=== PATIENT | female | born 1980 | race Caucasian/White ===

== ENCOUNTER 2020-09-04 00:16 | Emergency (ER) | payer BC ==
[2020-09-04] MEDS ORDERED: Acetaminophen/HYDROcodone 325-5 MG Tab PO ONE (00:17)
[2020-09-04] MEDS ORDERED: Sodium Chloride 0.9% 10 ML Syringe FLUSH PRN (00:35)
[2020-09-04] MEDS ORDERED: Ketorolac 30 MG/ML SDV IVPUSH ONE (01:13)
--- NOTE | 2020-09-04 01:16 | EDM.PDOC ---
ED HPI GENERAL MEDICAL PROBLEM - General Chief Complaint: Abdominal Pain Stated Complaint: STOMACH AND BACK PAIN Time Seen by Provider: 09/04/20 01:13 Source of Information: Reports: Patient History Limitations: Reports: No Limitations - History of Present Illness INITIAL COMMENTS - FREE TEXT/NARRATIVE: Presents with intermittent low abdominal pain that radiates to left lower back x 2 days. Denies N/V. Endorses diarrhea. No vaginal discharge. Past surgeries include and cholecystectomy. 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 ED EXAM, GI/ABD - Physical Exam Exam: See Below Exam Limited By: No Limitations General Appearance: Alert, WD/WN, No Apparent Distress Throat/Mouth: No Airway Compromise Head: Atraumatic, Normocephalic Neck: Full Range of Motion Respiratory/Chest: No Respiratory Distress, Lungs Clear, Normal Breath Sounds Cardiovascular: Regular Rate, Rhythm, No Murmur GI/Abdominal Exam: Normal Bowel Sounds, Soft, No Distention, Tender (suprapubic and LUQ). No: Guarding Back Exam: No: CVA Tenderness (R), CVA Tenderness (L) Extremities: Normal Range of Motion Neurological: Alert, Normal Cognition Psychiatric: Normal Affect, Normal Mood Skin Exam: Warm, Dry, Intact Course - Vital Signs Last Recorded V/S: Last Vital Signs Temp 36.6 C 09/04/20 00:24 Pulse 69 01/24/21 00:24 Resp 18 09/04/20 00:24 BP 142/82 H 09/04/20 00:24 Pulse Ox 100 09/04/20 00:24 - Orders/Labs/Meds Orders: Active Orders 24 hr Category Date Time Status Abdomen Pelvis w Cont [CT] Stat Exams 09/04/20 01:12 Taken CHLAMYDIA/GC AMPLIFICATION Stat Lab 09/04/20 00:25 Received Sodium Chloride 0.9% [Saline Flush] Med 09/04/20 00:35 Active 10 ml FLUSH ASDIRECTED PRN Saline Lock Insert [OM.PC] Routine Oth 09/04/20 00:35 Ordered Medication Orders Sodium Chloride (Saline Flush) 10 ml FLUSH ASDIRECTED PRN PRN Reason: Keep Vein Open Labs: Laboratory Tests 09/04/20 09/04/20 09/04/20 Range/Units 00:25 00:25 00:43 WBC 9.7 (3.0-10.3) x10-3/uL RBC 4.44 (3.60-5.20) x10(6)uL Hgb 13.6 (11.4-15.5) g/dL Hct 40.0 (34.2-48.2) % MCV 90.1 (76.7-100.5) fL MCH 30.7 (23.9-33.9) pg MCHC 34.1 (31.9-34.8) g/dL RDW 12.8 (12.3-16.5) % Plt Count 396 (151-488) x10(3)uL MPV 8.1 (7.1-12.4) fL Neut % (Auto) 60.6 (30.8-76.2) % Lymph % (Auto) 27.3 (18.4-52.1) % [place] % (Auto) 9.4 (4.4-15.7) % Eos % (Auto) 1.8 (0.6-8.1) % Baso % (Auto) 0.9 (0.2-1.5) % Neut # (Auto) 5.9 (1.5-6.3) x10-3/uL Lymph # (Auto) 2.6 (1.0-4.4) x10-3/uL [place] # (Auto) 0.9 (0.3-1.0) x10-3/uL Eos # (Auto) 0.2 (0.0-0.8) x10-3/uL Baso # (Auto) 0.1 (0.0-0.1) x10-3/uL Sodium (135-145) mmol/L Potassium (3.5-5.3) mmol/L Chloride (100-110) mmol/L Carbon Dioxide (21-32) mmol/L BUN (7-18) mg/dL Creatinine (0.55-1.02) mg/dL Est Cr Clr Drug Dosing Estimated GFR (MDRD) (>60) BUN/Creatinine Ratio (9-20) Glucose (80-116) mg/dL Calcium (8.6-10.2) mg/dL Total Bilirubin (0.1-1.3) mg/dL AST (5-25) IU/L ALT (12-36) U/L Alkaline Phosphatase (56-112) IU/L Total Protein (6.0-8.0) g/dL Albumin (3.5-5.2) g/dL Globulin g/dL Albumin/Globulin Ratio Lipase (73-393) U/L Urine Color Yellow (YELLOW) Urine Appearance Slightly cloudy (CLEAR) Urine pH 5.0 (5.0-6.5) Ur Specific [place] 1.020 (1.010-1.025) Urine Protein Negative (NEGATIVE) mg/dL Urine Glucose (UA) 250 H (NORMAL) mg/dL Urine Ketones Negative (NEGATIVE) mg/dL Urine Occult Blood Negative (NEGATIVE) Urine Nitrite Negative (NEGATIVE) Urine Bilirubin Negative (NEGATIVE) Urine Urobilinogen Normal (NEGATIVE) mg/dL Ur Leukocyte Esterase Negative (NEGATIVE) Urine RBC 0-5 (0-5) Urine WBC 0-5 (0-5) Ur Squamous Epith Cells Moderate H (NS,R,O) Urine Bacteria Few H (NS) Urine HCG, Qual Negative (NEGATIVE) 09/04/20 09/04/20 Range/Units 00:43 00:43 WBC (3.0-10.3) x10-3/uL RBC (3.60-5.20) x10(6)uL Hgb (11.4-15.5) g/dL Hct (34.2-48.2) % MCV (76.7-100.5) fL MCH (23.9-33.9) pg MCHC (31.9-34.8) g/dL RDW (12.3-16.5) % Plt Count (151-488) x10(3)uL MPV (7.1-12.4) fL Neut % (Auto) (30.8-76.2) % Lymph % (Auto) (18.4-52.1) % [place] % (Auto) (4.4-15.7) % Eos % (Auto) (0.6-8.1) % Baso % (Auto) (0.2-1.5) % Neut # (Auto) (1.5-6.3) x10-3/uL Lymph # (Auto) (1.0-4.4) x10-3/uL [place] # (Auto) (0.3-1.0) x10-3/uL Eos # (Auto) (0.0-0.8) x10-3/uL Baso # (Auto) (0.0-0.1) x10-3/uL Sodium 139 (135-145) mmol/L Potassium 3.7 (3.5-5.3) mmol/L Chloride 101 (100-110) mmol/L Carbon Dioxide 26 (21-32) mmol/L BUN 11 (7-18) mg/dL Creatinine 0.7 (0.55-1.02) mg/dL Est Cr Clr Drug Dosing TNP Estimated GFR (MDRD) > 60 (>60) BUN/Creatinine Ratio 15.7 (9-20) Glucose 194 H (80-116) mg/dL Calcium 9.1 (8.6-10.2) mg/dL Total Bilirubin 0.3 (0.1-1.3) mg/dL AST 15 (5-25) IU/L ALT 32 (12-36) U/L Alkaline Phosphatase 66 (56-112) IU/L Total Protein 7.6 (6.0-8.0) g/dL Albumin 4.1 (3.5-5.2) g/dL Globulin 3.5 g/dL Albumin/Globulin Ratio 1.2 Lipase 117 (73-393) U/L Urine Color (YELLOW) Urine Appearance (CLEAR) Urine pH (5.0-6.5) Ur Specific [place] (1.010-1.025) Urine Protein (NEGATIVE) mg/dL Urine Glucose (UA) (NORMAL) mg/dL Urine Ketones (NEGATIVE) mg/dL Urine Occult Blood (NEGATIVE) Urine Nitrite (NEGATIVE) Urine Bilirubin (NEGATIVE) Urine Urobilinogen (NEGATIVE) mg/dL Ur Leukocyte Esterase (NEGATIVE) Urine RBC (0-5) Urine WBC (0-5) Ur Squamous Epith Cells (NS,R,O) Urine Bacteria (NS) Urine HCG, Qual (NEGATIVE) Meds: Medications Generic Name Dose Route Start Last Admin Trade Name Freq PRN Reason Stop Dose Admin Sodium Chloride 10 ml 09/04/20 00:35 Saline Flush FLUSH ASDIRECTED PRN Keep Vein Open Discontinued Medications Generic Name Dose Route Start Last Admin Trade Name Freq PRN Reason Stop Dose Admin Iopamidol 100 ml 09/04/20 01:36 09/04/20 01:50 Isovue-370 (76%) IV 09/04/20 01:37 100 ml . DIRECTED ONE Administration Ketorolac Tromethamine 15 mg 09/04/20 01:13 09/04/20 01:17 Toradol IVPUSH 09/04/20 01:14 15 mg ONETIME ONE Administration - Radiology Interpretation Free Text/Narrative:: CT Abd/Pelvis w/ IV contrast: IMPRESSION: No evidence of appendicitis, diverticulitis or bowel obstruction. An abnormal thickened uterine endometrium demonstrating irregular lobulated and septated low-density areas. Recommend gynecological evaluation and pelvic sonography. Apparent anterior bladder wall thickening and irregularity which could be related to luminal contrast mixing. Correlate clinically and if indicated, follow-up. Small pelvic free fluid could be physiologic. Dictated by Bradley Sam MD @ 09/04/2020 2:16:18 AM - Re-Assessments/Exams Free Text/Narrative Re-Assessment/Exam: 09/04/20 02:31 Pain improved after Toradol 15 mg IV. Departure - Departure Time of Disposition: 02:31 Disposition: Home, Self-Care 01 Condition: Good Clinical Impression: Pelvic pain - Discharge Information *PRESCRIPTION DRUG MONITORING PROGRAM REVIEWED*: Yes *COPY OF PRESCRIPTION DRUG MONITORING REPORT IN PATIENT CHRISTINA: Not Applicable Prescriptions: Acetaminophen/HYDROcodone [[place] 325-5 MG] 1 - 2 tab PO Q6H PRN #12 tab PRN Reason: Pain Instructions: Pelvic Pain, Female, [id number] Referrals: Edson Salgado MD [Ordering Only Provider] - 3 Days Forms: ED Department Discharge Additional Instructions: Take OTC Ibuprofen as needed to control pain. You may take [place] for breakthrough pain. Schedule a Pelvic Ultrasound. 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 Sepsis Event Note (ED) - Evaluation Sepsis Screening Result: No Definite Risk - Focused Exam Vital Signs: Vital Signs Temp Pulse Resp BP Pulse Ox 09/04/20 00:24 36.6 C 69 18 142/82 H 100 - My Orders Last 24 Hours: My Active Orders 09/04/20 00:25 CHLAMYDIA/GC AMPLIFICATION Stat 09/04/20 00:35 Sodium Chloride 0.9% [Saline Flush] 10 ml FLUSH ASDIRECTED PRN Saline Lock Insert [OM.PC] Routine 09/04/20 01:12 Abdomen Pelvis w Cont [CT] Stat - Assessment/Plan Last 24 Hours: My Active Orders 09/04/20 00:25 CHLAMYDIA/GC AMPLIFICATION Stat 09/04/20 00:35 Sodium Chloride 0.9% [Saline Flush] 10 ml FLUSH ASDIRECTED PRN Saline Lock Insert [OM.PC] Routine 09/04/20 01:12 Abdomen Pelvis w Cont [CT] Stat
[2020-09-04] MEDS ORDERED: Iopamidol 755 Mg/ML 100 ML Bottle IV ONE (01:36)
[2020-09-07 19:09] LABS: CHLAMYDIA TRACHOMATIS, NAA Negative (Negative); NEISSERIA GONORRHOEAE, NAA Negative (Negative)
== END 2020-09-04 02:42 | disposition home or self-care (01) ==
LOC: FB.ED 00:16
DX: R10.2 Pelvic and perineal pain (principal); E11.9 Type 2 diabetes mellitus without complications
CPT/HCPCS: 36415; 74177; 80053; 81001; 81025; 83690; 85025; 87491; 87591; 96374; 99284; 99284-25; A9270-GY; J1885; Q9967

== ENCOUNTER 2021-01-04 16:40 | Emergency (ER) | payer BC ==
[2021-01-04] MEDS ORDERED: Sodium Chloride 0.9% 10 ML Syringe FLUSH PRN (17:32)
[2021-01-04] MEDS ORDERED: Iopamidol 755 Mg/ML 75 ML Bottle IV ONE (17:49)
[2021-01-04] MEDS: Morphine 2 MG/ML SYRINGE IVPUSH ONE ×2 (18:41→19:01)
[2021-01-04] MEDS ORDERED: Amoxicillin/Clavulanate K 875-125 MG Tab PO STA (18:55)
--- NOTE | 2021-01-04 19:02 | EDM.PDOC ---
ED HPI GENERAL MEDICAL PROBLEM - General Chief Complaint: Abdominal Pain Stated Complaint: LOWER ABD PAIN Time Seen by Provider: 01/04/21 18:50 Source of Information: Reports: Patient History Limitations: Reports: No Limitations - History of Present Illness INITIAL COMMENTS - FREE TEXT/NARRATIVE: Patient presented to the ED because of LLQ and RLQ pain which started yesterday. The pain is sharp,cramping, 10/10 at worse. There is no associated fever,chills, nausea or vomiting. She was seen in the clinic today , given toradol 60 mg IM x1 and was referred here. 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: Psychiatric History: Reports: Anxiety Endocrine/Metabolic History: Reports: Diabetes, Type II - Past Surgical History GI Surgical History: Reports: Cholecystectomy Female Surgical History: Reports: Section, Tubal Ligation Social & Family History - Family History Family Medical History: No Pertinent Family History - Tobacco Use Tobacco Use Status *Q: Unknown Ever Used Tobacco - Caffeine Use Caffeine Use: Reports: Soda - Recreational Drug Use Recreational Drug Use: No ED ROS GENERAL - Review of Systems Review Of Systems: See Below Constitutional: Reports: No Symptoms HEENT: Reports: No Symptoms Respiratory: Reports: No Symptoms Cardiovascular: Reports: No Symptoms Endocrine: Reports: No Symptoms GI/Abdominal: Reports: Abdominal Pain : Reports: No Symptoms Musculoskeletal: Reports: No Symptoms Skin: Reports: No Symptoms Neurological: Reports: No Symptoms Psychiatric: Reports: No Symptoms ED EXAM, GI/ABD - Physical Exam Exam: See Below Exam Limited By: No Limitations General Appearance: Alert, No Apparent Distress Ears: Normal External Exam, Normal Canal Nose: Normal Inspection, Normal Mucosa Throat/Mouth: Normal Inspection, Normal Lips, Normal Teeth Head: Atraumatic, Normocephalic Neck: Normal Inspection, Supple, Non-Tender, Full Range of Motion Respiratory/Chest: No Respiratory Distress, Lungs Clear, Normal Breath Sounds, No Accessory Muscle Use, Chest Non-Tender Cardiovascular: Normal Peripheral Pulses, Regular Rate, Rhythm, No Edema, No Gallop, No JVD, No Murmur GI/Abdominal Exam: Normal Bowel Sounds, Soft, Other (LLQ T and RLQ tenderness) Back Exam: Normal Inspection, Full Range of Motion Extremities: Normal Inspection, Normal Range of Motion, Non-Tender Neurological: Alert, Oriented, CN II-XII Intact Course - Vital Signs Text/Narrative:: Lab/CT result was reviewed and discussed with patient Augmentin 875 mg po x1 Last Recorded V/S: Last Vital Signs Temp 37.1 C 01/04/21 16:46 Pulse 69 01/04/21 16:46 Resp 18 01/04/21 16:46 BP 133/83 01/04/21 16:46 Pulse Ox 100 01/04/21 16:46 - Orders/Labs/Meds Orders: Active Orders 24 hr Category Date Time Status Abdomen Pelvis w Cont [CT] Stat Exams 01/04/21 17:32 Taken Amoxicillin/Clavulanate K [Augmentin 875 MG/125 MG] Med 01/04/21 18:55 Stat 1 tab PO NOW STA Sodium Chloride 0.9% [Saline Flush] Med 01/04/21 17:32 Active 10 ml FLUSH ASDIRECTED PRN Saline Lock Insert [OM.PC] Routine Oth 01/04/21 17:32 Ordered Medication Orders Sodium Chloride (Sodium Chloride 0.9% 10 Ml Syringe) 10 ml FLUSH ASDIRECTED PRN PRN Reason: Keep Vein Open Labs: Laboratory Tests 01/04/21 Range/Units 16:10 Urine HCG, Qual Negative (NEGATIVE) Meds: Medications Generic Name Dose Route Start Last Admin Trade Name Freq PRN Reason Stop Dose Admin Sodium Chloride 10 ml 01/04/21 17:32 Sodium Chloride 0.9% 10 Ml Syringe FLUSH ASDIRECTED PRN Keep Vein Open Discontinued Medications Generic Name Dose Route Start Last Admin Trade Name Freq PRN Reason Stop Dose Admin Iopamidol 75 ml 01/04/21 17:49 01/04/21 18:00 Iopamidol 755 Mg/Ml 75 Ml Bottle IV 01/04/21 17:50 75 ml ONETIME ONE Administration Morphine Sulfate 2 mg 01/04/21 18:37 Morphine 2 Mg/Ml Syringe IVPUSH 01/04/21 18:38 ONETIME ONE Departure - Departure Time of Disposition: 19:00 Disposition: Home, Self-Care 01 Condition: Good Clinical Impression: Diverticulitis - Discharge Information Prescriptions: Amoxicillin/Clavulanate K [Augmentin 875-125 MG] 1 tab PO BID #20 tablet Instructions: Diverticulitis, [id number] Referrals: PCP,None [Primary Care Provider] - Additional Instructions: Please read discharge instructions on diverticulitis Take ibuprofen 800 mg with Tylenol 1000 mg PO every 8 hours as needed for pain Augmentin 875 mg twice daily for 10 days 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 You need to follow up for the abnormal CT scan Sepsis Event Note (ED) - Evaluation Sepsis Screening Result: No Definite Risk - Focused Exam Vital Signs: Vital Signs Temp Pulse Resp BP Pulse Ox 01/04/21 16:46 37.1 C 69 18 133/83 100 - My Orders Last 24 Hours: My Active Orders 01/04/21 17:32 Abdomen Pelvis w Cont [CT] Stat Sodium Chloride 0.9% [Saline Flush] 10 ml FLUSH ASDIRECTED PRN Saline Lock Insert [OM.PC] Routine 01/04/21 18:55 Amoxicillin/Clavulanate K [Augmentin 875 MG/125 MG] 1 tab PO NOW STA - Assessment/Plan Last 24 Hours: My Active Orders 01/04/21 17:32 Abdomen Pelvis w Cont [CT] Stat Sodium Chloride 0.9% [Saline Flush] 10 ml FLUSH ASDIRECTED PRN Saline Lock Insert [OM.PC] Routine 01/04/21 18:55 Amoxicillin/Clavulanate K [Augmentin 875 MG/125 MG] 1 tab PO NOW STA
--- NOTE | 2021-01-04 19:05 | CT ---
INDICATION: Left lower quadrant/right lower quadrant pain with loose stools yesterday. No fever. CT ABDOMEN AND PELVIS WITH CONTRAST: Spiral 3.75 mm sections were obtained through the abdomen and pelvis with 75 mL Isovue-370 at 2 mL per second with sagittal and coronal reconstructions 01/04/21 and compared with 09/04/20. Total exam DLP was 475.38 mGy-cm. Abnormal endometrial cavity is again noted with irregular areas of fluid collection within it. If further workup of the endometrium has not already been obtained, would suggest that as a possible further workup. There appear to be some abnormal areas of air trapping at the lung bases with no definite active infiltrate or effusion. The heart did not appear enlarged. No pericardial effusion was seen. The liver appeared normal. The gallbladder is absent with clips in the gallbladder bed, compatible with cholecystectomy. The adrenal glands and left kidney appeared normal. There is a low-density lesion which has the appearance of a simple cyst in the anterior cortex of the mid pole of the right kidney. No obstructive uropathy was seen. The spleen and pancreas appear to be normal. Common bile duct was normal in caliber. No retroperitoneal mass was seen. The appendix appeared normal. No evidence of free air or bowel obstruction was identified. There is noted thickening of the wall of the sigmoid colon with what appears to be a diverticulum in the area, suggesting a mild or early diverticulitis with some very minimal pericolonic fat stranding, suggesting pericolonic inflammation. A small probable follicular cyst is noted at the left ovary. There is noted an infrarenal duplicated IVC with intraluminal clot suggested, seen on axial images 51-77 with clot appearing to distend the lumen - to the right of the IVC. This is compatible with an infrarenal IVC with deep venous thrombosis, but should be correlated clinically. No retroperitoneal mass was identified. IMPRESSION: 1. Suggestion of mild sigmoid diverticulitis with very limited pericolonic inflammation. No abscess or free air. 2. 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 3. Thickened abnormal endometrial cavity with areas of irregular fluid collection is again noted. Endometrial workup is recommended. 4. No free fluid is seen in the pelvis on the current study. 5. The urinary bladder wall is not thickened on the current study. 6. Small simple cyst suggested at the right kidney - no significant interval change. Report was called to Dr. Davis at 1843 hours 01/04/21. [facility]
== END 2021-01-04 19:20 | disposition home or self-care (01) ==
LOC: FB.ED 16:40
DX: K57.32 Diverticulitis of large intestine without perforation or abscess without bleeding (principal); E11.9 Type 2 diabetes mellitus without complications; Z79.84 Long term (current) use of oral hypoglycemic drugs
CPT/HCPCS: 74177; 81025; 99284-25; A9270-GY; J2270; Q9967

== ENCOUNTER 2021-05-18 13:07 | Emergency (ER) | payer SELFPAY ==
[2021-05-18] MEDS ORDERED: Acetaminophen/HYDROcodone 325-5 MG Tab PO STA (14:13)
--- NOTE | 2021-05-18 14:18 | EDM.PDOC ---
ED HPI GENERAL MEDICAL PROBLEM - General Chief Complaint: Lower Extremity Injury/Pain Stated Complaint: GLASS STUCK IN LEG Time Seen by Provider: 05/18/21 13:08 Source of Information: Reports: Patient History Limitations: Reports: No Limitations - History of Present Illness INITIAL COMMENTS - FREE TEXT/NARRATIVE: Patient presented to the ED because of right knee injury. She kneeled on a broken glass and sustained a 1 cm laceration on the lateral aspect of the right knee. 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 Psychiatric History: Reports: Anxiety Endocrine/Metabolic History: Reports: Diabetes, Type II - Past Surgical History GI Surgical History: Reports: Cholecystectomy Female Surgical History: Reports: Section, Tubal Ligation Social & Family History - Family History Family Medical History: No Pertinent Family History - Tobacco Use Tobacco Use Status *Q: Never Tobacco User - Caffeine Use Caffeine Use: Reports: None - Recreational Drug Use Recreational Drug Use: No Review of Systems - Review of Systems Review Of Systems: See Below Constitutional: Reports: No Symptoms Eyes: Reports: No Symptoms Ears: Reports: No Symptoms Nose: Reports: No Symptoms Mouth/Throat: Reports: No Symptoms Respiratory: Reports: No Symptoms Cardiovascular: Reports: No Symptoms GI/Abdominal: Reports: No Symptoms Genitourinary: Reports: No Symptoms Musculoskeletal: Reports: Other (rt knee pain) Skin: Reports: No Symptoms Neurological: Reports: No Symptoms Psychiatric: Reports: No Symptoms ED EXAM, GENERAL - Physical Exam Exam: See Below Exam Limited By: No Limitations General Appearance: Alert, No Apparent Distress Eye Exam: Bilateral Eye: PERRL Ears: Normal External Exam, Normal Canal, Hearing Grossly Normal, Normal TMs Nose: Normal Inspection, Normal Mucosa, No Blood Throat/Mouth: Normal Inspection, Normal Lips, Normal Teeth, Normal Gums, Normal Oropharynx, Normal Voice Head: Atraumatic, Normocephalic Neck: Normal Inspection, Supple, Non-Tender, Full Range of Motion Respiratory/Chest: No Respiratory Distress, Lungs Clear, Normal Breath Sounds, No Accessory Muscle Use, Chest Non-Tender Cardiovascular: Normal Peripheral Pulses, Regular Rate, Rhythm, No Edema, No Gallop, No JVD, No Murmur, No Rub GI/Abdominal: Normal Bowel Sounds, Soft, Non-Tender, No Organomegaly, No Distention, No Abnormal Bruit, No Mass Extremities: Normal Inspection, Normal Range of Motion, Non-Tender, No Pedal Edema, Normal Capillary Refill Neurological: Alert, CN II-XII Intact, Normal Reflexes, No Motor/Sensory Deficits Psychiatric: Normal Affect Skin Exam: Warm ED TRAUMA EXTREMITY PROCEDURES - Laceration/Wound Repair Right Knee Lac/Wound Length In cm: 1 Appearance: Superficial Distal NVT: Neuro & Vascular Intact Skin Prep: Chlorhexidine (Hibiciens) Closed With: Dermabond Course - Vital Signs Text/Narrative:: utd with immunization Last Recorded V/S: Last Vital Signs Temp 36.9 C 05/18/21 13:08 Pulse 89 05/18/21 13:08 Resp 20 05/18/21 13:08 BP 115/70 05/18/21 13:08 Pulse Ox 97 05/18/21 13:08 - Orders/Labs/Meds Orders: Active Orders 24 hr Category Date Time Status Knee 1V or 2V Rt [CR] Stat Exams 05/18/21 13:14 Taken Meds: Medications Discontinued Medications Generic Name Dose Route Start Last Admin Trade Name Olivia PRN Reason Stop Dose Admin Hydrocodone Bitart/Acetaminophen 2 tab 05/18/21 14:13 05/18/21 14:18 Acetaminophen/Hydrocodone 325-5 Mg Tab PO 05/18/21 14:14 2 tab NOW STA Administration Departure - Departure Time of Disposition: 14:30 Disposition: Home, Self-Care 01 Condition: Good Clinical Impression: Right knee injury, Laceration - Discharge Information Instructions: Laceration Care, Adult, [id number] Referrals: PCP,None [Primary Care Provider] - Forms: ED Department Discharge Additional Instructions: please read discharge instructions on knee injury and laceration no need to apply an antibiotic ointment keep the wound dry for 3-5 days follow up as needed Sepsis Event Note (ED) - Evaluation Sepsis Screening Result: No Definite Risk - Focused Exam Vital Signs: Vital Signs Temp Pulse Resp BP Pulse Ox 05/18/21 13:08 36.9 C 89 20 115/70 97 - My Orders Last 24 Hours: My Active Orders 05/18/21 13:14 Knee 1V or 2V Rt [CR] Stat - Assessment/Plan Last 24 Hours: My Active Orders 05/18/21 13:14 Knee 1V or 2V Rt [CR] Stat
--- NOTE | 2021-05-18 16:26 | CR ---
RIGHT KNEE INDICATION: Glass on right knee. FINDINGS: Frontal and lateral views of the right knee were obtained 05/18/21 - no comparison. A quadrangle shaped density is noted overlying the lateral aspect of the right knee anteriorly, which measured a maximum of approximately 14 mm craniocaudad x 7.9 mm. No significant bone or joint abnormality was identified. IMPRESSION: A possible shard of glass anterolaterally at the level of the right femoral condyle is noted measuring a maximum of 14 mm. MTDD
== END 2021-05-18 14:30 | disposition home or self-care (01) ==
LOC: FB.ED 13:07
DX: S81.011A Laceration without foreign body, right knee, initial encounter (principal); E11.9 Type 2 diabetes mellitus without complications; W25.XXXA Contact with sharp glass, initial encounter
CPT/HCPCS: 12001; 73560-RT; 99283-25; A9270-GY